=== PATIENT | female | born 2000 | race African-American/Black ===

== ENCOUNTER → 2019-05-22 | Outpatient (REF) | payer OTHER ==
[~2019-05-22] MED LIST: BIOT1CAP2 PO
[2019-05-22 21:49] LABS: CHLAMYDIA DNA AMPLIFICATION NEGATIVE (NEGATIVE); GC DNA AMPLIFICATION NEGATIVE (NEGATIVE)
[2019-05-24 10:10] LABS: HEPATITIS A ANTIBODY IGM NEGATIVE (NEGATIVE); HEPATITIS B CORE ANTIBODY IGM NEGATIVE (NEGATIVE); HEPATITIS B SURFACE ANTIGEN NEGATIVE (NEGATIVE); HEPATITIS C VIRUS ABY INDEX 0.2 INDEX (<0.8); HIV 1&2 SCREEN CENTAUR NEGATIVE (NEGATIVE)
[2019-05-28 00:07] LABS: HSV TYPE I IgM AB <1:10 titer (<1:10); HSV TYPE II IgM ABY <1:10 titer (<1:10)
== END ==
LOC: M SFHCLERA 16:46
PROVIDERS: ATTEND Physician Assistant
DX: N94.9 Unspecified condition associated with female genital organs and menstrual cycle (principal)
CPT/HCPCS: 81002; 81025; 86695; 86696; 86705; 86709; 86780; 86803; 87070; 87086; 87252; 87340; 87389; 87661; G0463

== ENCOUNTER 2019-08-15 00:12 | Emergency (ER) | payer OTHER ==
[~2019-08-15] VITALS: Ht 165.1 cm; Wt 59.0 kg
[2019-08-15] MEDS ORDERED: BIOT1CAP2 PO (00:36)
[2019-08-15] MEDS ORDERED: NS 1,000 ML IV ONE (00:45)
[2019-08-15 00:48] LABS: BASO # 0.1 10^3/uL (0.0-0.2); BASO % 0.3 % (0.0-1.0); EOS % 0.1 % (0.0-3.0); HEMATOCRIT 39.1 % (36.0-47.0); HEMOGLOBIN 12.4 g/dl (12.0-15.5); LYMPH # 0.7 10^3/uL (1.5-5.0); LYMPH % 4.5 % (24.0-44.0); MEAN CORPUSCULAR HEMOGLOBIN 28.1 pg (27.0-33.0); MEAN CORPUSCULAR HGB CONC 31.7 g/dl (32.0-36.5); MEAN CORPUSCULAR VOLUME 88.5 fl (80.0-96.0); MONO # 0.5 10^3/uL (0.0-0.8); MONO % 2.9 % (0.0-5.0); NEUTROPHILS % 91.5 % (36.0-66.0); PLATELET COUNT, AUTOMATED 166 10^3/uL (150-450); RED BLOOD COUNT 4.42 10^6/uL (4.00-5.40); WHITE BLOOD COUNT 15.3 10^3/uL (4.0-10.0)
[2019-08-15 01:33] LABS: BLOOD UREA NITROGEN 19 MG/DL (7-18); CALCIUM LEVEL 8.9 MG/DL (8.5-10.1); CARBON DIOXIDE LEVEL 22 MEQ/L (21-32); CHLORIDE LEVEL 105 MEQ/L (98-107); CPK CREATINE PHOSPHOKINASE 987 U/L (26-192); CREATININE FOR GFR 0.69 MG/DL (0.55-1.30); ETHYL ALCOHOL (ETHANOL) < 0.003 % (0.000-0.010); GLOMERULAR FILTRATION RATE > 60.0 (>60); GLUCOSE, FASTING 101 MG/DL (70-100); POTASSIUM SERUM 4.1 MEQ/L (3.5-5.1); SODIUM LEVEL 139 MEQ/L (136-145)
--- NOTE | 2019-08-15 02:29 | REPVR ---
PROCEDURE INFORMATION: Exam: CT Head Without Contrast Exam date and time: 08/15/2019 1:24 AM Age: 19 years old Clinical history: Altered mental status/memory loss; Other: Hypothermic; Additional info: AMS TECHNIQUE: Imaging protocol: Computed tomography of the head without contrast. Radiation optimization: All CT scans at this facility use at least one of these dose optimization techniques: automated exposure control; mA and/or kV adjustment per patient size (includes targeted exams where dose is matched to clinical indication); or iterative reconstruction. COMPARISON: No relevant prior studies available. FINDINGS: Brain: The white-prescott differentiation is preserved demonstrating no acute territorial type infarct. No acute intracranial hemorrhage is visualized. No intracranial mass effect. Midline shift: There is no midline shift. Ventricles: No ventriculomegaly. Bones/joints: The calvarium demonstrates no evidence for a depressed fracture. Sinuses: Visualized sinuses are unremarkable. No fluid levels. Mastoid air cells: No mastoid effusion. Soft tissues: Multiple tiny hyperdense scalp foci are visualized, suggestive of calcification. IMPRESSION: 1. No acute intracranial abnormality. 2. If further evaluation is clinically indicated, an MRI of the brain is recommended. Electronically signed by: Derick Valenzuela On 08/15/2019 02:29:22 AM
[2019-08-15 03:15] VITALS: BP 109/52
== END 2019-08-15 03:48 | disposition home or self-care (01) ==
LOC: M ED 00:12
DX: T68.XXXA Hypothermia, initial encounter (principal); Y92.84 Military training ground as the place of occurrence of the external cause; Y99.1 Military activity; X31.XXXA Exposure to excessive natural cold, initial encounter
CPT/HCPCS: 36415; 70450; 80048; 82375; 82550; 85025; 96360; 96361; 99284; G0480

== ENCOUNTER 2021-02-20 06:53 | Inpatient (IN) | payer OTHER ==
[2021-02-20] VITALS (39 sets, daily range): BP systolic 110–148; BP diastolic 67–98
[~2021-02-20] VITALS: Ht 165.1 cm; Wt 75.3 kg
[2021-02-20] MEDS ORDERED: LACTATED RINGER'S 1000 ML IV STA (07:12)
[2021-02-20] MEDS ORDERED: LR 1,000 ML IV SCH (07:15)
--- NOTE | 2021-02-20 07:49 | HPEPDOC ---
Obstetrical History & Physical General Date of Admission Vital Signs Label Value Date Time Patient Temperature 98.0 degrees F 02/20/21 0735 Temperature Source Temporal 02/20/21 0735 Pulse 84 02/20/21 0716 Blood Pressure Assessment 137/89 (105) 02/20/21 0716 Source Automatic Cuff (NIBP) Primary Care Physician: Kevin Hancock MD History of Present Illness AT 39.1 WEEKS HISTORY CONTRACTIONS Q5 MINUTES MODERATE PAINFUL NO LOSS OF FLUID NO BLEEDING Chief Complaint: Contractions, term Information Provided By: Patient Age: 20 : 1 Term: 1 Pre-term: 0 Abortions: 0 Livin Care Care: Good Care Number of Visits: 8 Dating Final EDC: Feb 26, 2021 Final EDC by: LMP LMP: May 22, 2020 1st Trimester Date: Aug 03, 2020 Weeks + Days: 10.6 Estimated Date of Confinement: Feb 26, 2021 EGA at Admission: 39.1 Antepartum Course Diagnos(e)s TERM IN ACTIVE LABOR Height (inches): 55 Pre- weight (lbs.): 129 Admission Weight (lbs.): 166 Change in Weight (lbs.): 37 Past Medical History Past Obstetrical History : Past Obstetrical History: Primgravida OPTICIAN History: No pertinent history Past Medical History Surgical History: Denies/None Family History Significant Family History: No pertinent family hx Social History Marital Status: Family situation: Spouse/partner home * Smoker: non-smoker Alcohol: Denies Drugs: denies Abuse Violence Screening Have you been hit/kicked/slapp: No Have you been sexually assault: No Imunizations Tdap status: current Influenza Status: current Allergies Coded Allergies: nickel (Verified Adverse Reaction, Intermediate, 02/20/21) Medications No Active Prescriptions or Reported Meds Physical Examination Physical Examination GENERAL: Alert and oriented times three. BREAST: . ABDOMEN: Gravid and non-tender to touch. FETUS: Is vertex (VTX) by sterile vaginal examination (SVE), fetus is vertex (VTX) by Onel. HEART RATE: Regular rate and rhythm. LUNGS: Clear to auscultation (CTA). EXTREMITIES: No edema. No clonus. Deep tendon reflexes (DTRs) + . Laboratory Data Urine Culture: No Growth Pertinent Laboratoy Data Blood Type: O+ RBC Antibody Screen: Negative HIV: Negative Hepatitis B: Negative Hepatitis C: Negative Rapid Plasma Reagin: Nonreactive Rubella: Immune Varicella: Immune Chlamydia/Gonorrhea: Negative Group B Streptococcus: Negative Cystic Fibrosis: Negative Anatomy Ultrasound Ultrasound Date: Dec 10, 2020 Placenta Location: Anterior Normal Anatomy: Yes Placenta Previa: No Estimated Weight (grams): 1369 Steroid Therapy Steroid Therapy: No Vaginal Examination Dilation: 4 cm Effacement: 70% Station: -2 Cervical Consistency: Soft Cervical Position: Posterior Presentation: Cephalic presentation Position: Vertex (occiput) Assessment Variability: Moderate Accelerations: Present Decelerations: None Tocometer Contractions: Yes Frequency: regular Duration: less than 60 seconds Strength: palpated as strong Assessment/Plan Assessment 20 -year-old (G)1 para (P)0 at 39.1 weeks by [10.6-week ultrasound. Presents to Labor and Delivery (L&D) CONTRACTIONS MODERATE Q 5 MINUTES Plan Admit and orient. Inspector And Tester and consent. Diet: MARK Group B Streptococcus (GBS) [negative]. Labs and intravenous (IV) per unit protocol. Counseled on Pitocin and induction of labor (IOL). Lactated Ringers (LR): Bolus 1000 PRE EPIDURAL mL, then at 125 mL/hr. Anticipate [normal spontaneous delivery ()]. C-S as appropriate. Labor and Delivery Counseling REVIEWED RISK VAGINAL DELIVERY RE HEMORRHAGE INFECTION PERFORATION RISK VAGINAL DELIVERY LACERATIONS BOWEL BLADDER CERVIX REPAIR NEEDED NEED FOR EPISIOTOMY AND REPAIR. REVIEWED OPERATIVE VAGINAL DELIVERY DONE FOR OR MATERNAL CONDITIONS RISK OF CEPHALOHEMATOMA, SUBDURAL HEMATOMA LACERATIONS NEED FOR ADMISSION NICU AND OR TRANSFER TO HIGHER LEVEL OF CARE. NEED FOR EMERGENCY CS FOR MEDICAL OR CONDITIONS REMOTE BLOOD TRANSFUSIONS FOR LIFE THREATENING BLEEDING REMOTE POSSIBILITIES OF HYSTERECTOMY FOR LIFE THREATENING BLEEDING EXPRESSED UNDERSTANDING SAFE TO PROCEED 20 MINUTES FACE TO FACE Kevin Hancock MD February 20, 2021 07:45
[2021-02-20 08:22] LABS: HEMATOCRIT 37.1 % (36.0-47.0); HEMOGLOBIN 11.6 g/dl (12.0-15.5); MEAN CORPUSCULAR HGB CONC 31.3 g/dl (32.0-36.5); PLATELET COUNT, AUTOMATED 176 10^3/uL (150-450); RED BLOOD COUNT 4.47 10^6/uL (4.00-5.40); WHITE BLOOD COUNT 8.2 10^3/uL (4.0-10.0)
[2021-02-20] MEDS ORDERED: FENTANYL 2MCG/ML ROPIVACAINE 0.2% IN 0.9% NACL 100ML IVBAG As Ordered ONE (08:30)
[2021-02-20] MEDS ORDERED: OXYTOCIN 30 UNITS IN 0.9% NaCl 500ML IV BAG (J2590) As Ordered ONE (08:30)
--- NOTE | 2021-02-20 08:57 | IPNPDOC ---
Text Note Date of Service The patient was seen on 02/20/21. NOTE Assuming care of this 21yo G1 at 39w1d ega, by LMP c/w 1st trimester ultrasound, with an uncomplicated PNC admitted in early active labor. The patient denies a history of asthma, cHTN or abdominal surgeries. She is Rh positive, GBS negative, Rubella Immune, HepB/HIV/RPR negative. Admission HCT was 37.1. Placenta is anterior. VTX presentation was confirmed by examination. EFW 3400grams. Last SVE: /-2 (07:30 on 20 feb 2021) FHT: 130bpm, moderate variability, + accelerations, - decelerations TOCO: q5-minutes Plan: - Epidural anesthesia following IVF bolus - q2-hour strip reviews - Will repeat SVE 4-hours after last evaluation, or as clinically indicated Ifeanyi Briseno., Ph.D. [facility] OB-GENERAL LABOR FORKLIFT OPERATOR Staff Physician Prashanth CASE I+Stormy VSPrashanth I+O Laboratory Tests 02/20/21 08:00 Vital Signs Date Time Temp Pulse Resp B/P (MAP) Pulse Ox O2 Delivery O2 Flow Rate FiO2 02/20/21 07:35 98.0 02/20/21 07:16 84 137/89 (105) CRISTAL BENSON M.D. February 20, 2021 08:57
[2021-02-20] MEDS ORDERED: EPIDURAL COMMENT XX SCH (10:05)
[2021-02-20] MEDS ORDERED: NALOXONE INJ 0.4MG/1ML VIAL (J2310 PER 1MG) IV PRN (10:05)
[2021-02-20] MEDS ORDERED: FENTANYL/ROPIVACAINE/NACL BAG 100 ML EPIDURAL SCH (10:05)
[2021-02-20] MEDS ORDERED: EPIDURAL/PCA KEYS XX PRN (10:05)
[2021-02-20] MEDS ORDERED: diphenhydrAMINE 50MG/ML VIAL (J1200) IV PRN (10:05)
[2021-02-20] MEDS ORDERED: LACTATED RINGER'S 1000 ML IV PRN (10:05)
[2021-02-20] MEDS ORDERED: REFRIGERATOR IV KEYS XX PRN (10:05)
[2021-02-20] MEDS ORDERED: ePHEDrine SULFATE 25 MG/5 ML(5MG/ML) SYRINGE IV PRN (10:05)
[2021-02-20] MEDS ORDERED: ONDANSETRON 4MG/2ML VIAL IV PRN (10:05)
--- NOTE | 2021-02-20 12:00 | IPNPDOC ---
Obstetrical Progress Note Date of Service February 20, 2021 Subjective SPC Zo Adame is a 21yo G1 at 39w1d ega, by LMP c/w 1st trimester ultrasound, who presented this morning in early active labor at 4/70/-2. Patient is now comfortable with an epidural anesthesia. Pt was last checked at 09:40 by her RN and was found to be unchanged at 4/70/-2. Objective Vital Signs Date Time Temp Pulse Resp B/P (MAP) Pulse Ox O2 Delivery O2 Flow Rate FiO2 02/20/21 07:35 98.0 02/20/21 07:16 84 137/89 (105) Assessment Heart Rate (FHR): 120 Variability: Moderate Accelerations: Positive Decelerations: None Heart Rate Tracing: Category I Tocometer Contractions: Yes Frequency: regular, every 1-3 min. Sterile Vaginal Examination Dilation: 4 cm Effacement (%): 70% Station: -2 Cervical Consistency: Soft Cervical Position: Middle Postion/Presentation: Cephalic presentation Assessment and Plan Age: 21 : 1 EGA at Admission: 39 (39+1) Weeks & Days 39w1d Status: Reassuring Group B Streptococcus: Negative Anticipate: Vaginal Delivery Additional Comments - Will repeat SVE in 4 hours. - If unchanged, will consider amniotomy versus starting Pitocin. CRISTAL BENSON M.D. February 20, 2021 12:00
--- NOTE | 2021-02-20 13:43 | IPNPDOC ---
Obstetrical Progress Note Date of Service February 20, 2021 Subjective 21yo G1 at 39w1d ega, by LMP & c/w 1st trimester ultrasound, who was admitted in early active labor. Pt is comfortable with epidural anesthesia. Objective Vital Signs Date Time Temp Pulse Resp B/P (MAP) Pulse Ox O2 Delivery O2 Flow Rate FiO2 02/20/21 07:35 98.0 02/20/21 07:16 84 137/89 (105) Assessment Heart Rate (FHR): 120 Variability: Moderate Accelerations: Positive Decelerations: None Heart Rate Tracing: Category I Tocometer Contractions: Yes Frequency: regular, every 1-3 min. Sterile Vaginal Examination Dilation: 6 cm Effacement (%): 90% Station: 0 Cervical Consistency: Soft Cervical Position: Middle Postion/Presentation: Cephalic presentation Assessment and Plan Age: 21 : 1 EGA at Admission: 39 Weeks & Days 39w1d ega Status: Reassuring Group B Streptococcus: Negative Anticipate: Vaginal Delivery Additional Comments Amniotomy performed productive of moderate meconium stained fluid. Will repeat SVE & strip review in 2 hours, or as clinically indicated. Ifeanyi Briseno., ph.D. [facility] OB-SPINNING BATH PERSON Staff Physician CRISTAL BENSON M.D. February 20, 2021 13:43
--- NOTE | 2021-02-20 15:46 | IPNPDOC ---
Obstetrical Progress Note Date of Service February 20, 2021 Subjective 21yo G1 at 39w1d ega, by LMP c/w 1st trimester ultrasound, who was admitted in early active labor this morning. Patient is currently comfortable with epidural anesthesia. Objective Vital Signs Date Time Temp Pulse Resp B/P (MAP) Pulse Ox O2 Delivery O2 Flow Rate FiO2 02/20/21 07:35 98.0 02/20/21 07:16 84 137/89 (105) Assessment Heart Rate (FHR): 120 Variability: Moderate Accelerations: Positive Decelerations: Intermittent Heart Rate Tracing: Category II Tocometer Contractions: Yes Frequency: regular, every 1-3 min. Sterile Vaginal Examination Dilation: complete (Anterior Lip) Effacement (%): 100% Station: +1 Cervical Consistency: Soft Cervical Position: Anterior Postion/Presentation: Cephalic presentation Assessment and Plan Age: 21 : 1 EGA at Admission: 39 Weeks & Days 39w1d ega Status: Reassuring Group B Streptococcus: Negative Anticipate: Vaginal Delivery Additional Comments 21yo G1 at 39w1d ega who is currently Anterior Lip / 100% / +1. - Will allow the patient to labor down prior to initiating maternal pushing efforts. Ifeanyi Briseno., Ph.D. [facility] OB-INFORMATION SECURITY Staff CRISTAL BENSON M.D. February 20, 2021 15:46
[2021-02-20 17:26] LABS: CORD GAS ABE A -11.7; CORD GAS HCO3 A 15.9 MEQ/L; CORD GAS O2 SAT A 98.1 %; CORD GAS PCO2 A 42.2 mmHg; CORD GAS PH A 7.194 UNITS; CORD GAS PO2 A 83.4 mmHg; CORD GAS SBC A 15.3 MEQ/L; CORD GAS TCO2 A 17.2 MEQ/L
[2021-02-20 17:27] LABS: CORD GAS ABE V -8.6; CORD GAS HCO3 V 18.9 MEQ/L; CORD GAS PCO2 V 45.9 mmHg; CORD GAS PH V 7.232 UNITS; CORD GAS TCO2 V 20.3 MEQ/L
[2021-02-20] MEDS ORDERED: ACETAMINOPHEN TAB 650MG DOSE (2X325MG) PO PRN (17:30)
[2021-02-20] MEDS ORDERED: OXYTOCIN DRIP 30 UNITS in IV 1 EA IV SCH (17:30)
[2021-02-20] MEDS ORDERED: ACETAMINOPHEN 500 MG TAB PO PRN (17:30)
[2021-02-20] MEDS ORDERED: DOCUSATE SODIUM 100MG CAPSULE PO PRN (17:30)
[2021-02-20] MEDS ORDERED: IBUPROFEN 800 MG TAB PO PRN (17:30)
[2021-02-20] MEDS ORDERED: DIBUCAINE 1% OINTMENT 30GM TOP PRN (17:30)
[2021-02-20] MEDS ORDERED: IBUPROFEN 600MG TAB PO PRN (17:30)
--- NOTE | 2021-02-20 17:52 | DNPDOC ---
[facility] Delivery Note Delivery Note DATE OF DELIVERY: 02/20/2021 PREDELIVERY DIAGNOSIS: 39-1/7 weeks' gestation and labor. POST DELIVERY DIAGNOSIS: Delivered. PROCEDURE: Spontaneous vaginal delivery. SCREEN OPERATOR: Dr. Ankit Benson ANESTHESIA: Epidural. ESTIMATED BLOOD LOSS: 350mL. FINDINGS: 3330-gram male infant, Score 6/8, no nuchal cord. DELIVERY SUMMARY: Patient is a 21-year-old 1 now para 1-0-0-1 who was admitted to labor and delivery in early active labor as 07:30 hours on 20 Feb 2021. of a live male, 3330-grams and APGARS 6/8. Delivered ERIK with hand, no nuchal cord, & moderate meconium. Nose and mouth were suctioned at the perineum; body delivered without difficulty. Cord clamped and cut. Baby handed to nurse and was immediately taken to the warmer for deep suctioning. Placenta delivered spontaneously and intact. Blood gasses sent. Fundus firm with minimal bleeding. Placenta appears intact with 3 vessel cord. Perineum and vagina inspected - small, 1st degree left labial laceration repaired with 2-O vicryl in a running fashion. EBL 350mL. Hemostasis. Patient tolerated procedure well, recovering in LDR. ANKIT BENSON M.D. February 20, 2021 17:52
[2021-02-21 05:14] VITALS: BP 124/86
--- NOTE | 2021-02-21 06:56 | IPNPDOC ---
Progress Note Date of Service: February 21, 2021 Day#: 1 Progress Note SUBJECT: SPC Zo Adame is a 21-year-old 1 now Para 1-0-0-1 status post uncomplicated spontaneous vaginal delivery at 39-1/7 weeks' at approximately 17:30 hours on 20 Feb 2021 of a male weighing 3330-grams with post vaginal laceration and repair, doing well day # 1. She has been ambulating, voiding spontaneously without issue and tolerating regular diet. Breast feeding without issue. Reports lochia is like a normal period. Patient is ambulating well. Reports some cramping with . Denies any pain. Voiding and passing gase without difficulty. OBJECTIVE: VITAL SIGNS: Within normal limits, afebrile. Alert and oriented times three. Breath sounds clear to auscultation. Heart rate: Regular rate and rhythm, no murmurs, rubs or gallops. Abdomen: Fundus firm at U-2. Soft, NTTP. Moderate lochia. ASSESSMENT: SPC Adame is a 21-year-old 1 now Para 1-0-0-1 status post uncomplicated spontaneous vaginal delivery after presenting in early active labor, delivered at ~17:30 hours and 39-1/7 weeks', doing well on day 1. Vitals within normal limits, afebrile, hemodynamically stable with no evidence of infection. PLAN: 1. Tylenol and Motrin for pain. 2. Encourage breast feeding and ambulation. 3. Patient would like a combined oral contraceptive pill for contraception. Will start at 6-week PP visit. 4. Likely discharge to home on PP Day # 2. 5. Routine PP visit in 6 weeks in clinic. 6. Discussed return precautions at length. Ifeanyi Briseno., Ph.D. [facility] and OB-MARKETING OPERATIONS ANALYST Staff Physician VS, I&O, 24H, Prashanth Vital Signs/I&O Vital Signs Date Time Temp Pulse Resp B/P (MAP) Pulse Ox O2 Delivery O2 Flow Rate FiO2 02/21/21 05:14 98.8 68 15 124/86 (99) 100 Room Air I&O- Last 24 Hours up to 6 AM 02/21/21 06:00 Intake Total 1500 ml Output Total 950 ml Balance 550 ml Laboratory Data 24H LABS Laboratory Tests 2 02/20/21 08:00: Nucleated Red Blood Cells % (auto) 0.0 02/20/21 08:14: 02/20/21 08:24: Serology Scanned Report Hepatitis B Testing 02/20/21 17:18: Cord Arterial Blood pH 7.194, Cord Arterial Blood PCO2 42.2, Cord Arterial Blood PO2 83.4, Cord Arterial Blood HCO3 15.9, Cord Arterial Blood Total CO2 17.2, Cord Arterial Blood Base Excess -11.7, Cord Arterial Base Excess (Standard 15.3, Cord Arterial Bld Oxygen Saturation 98.1 02/20/21 17:19: Cord Venous Blood pH 7.232, Cord Venous Blood PCO2 45.9, Cord Venous Blood PO2 30.0, Cord Venous Blood HCO3 18.9, Cord Venous Blood Total CO2 20.3, Cord Venous Base Excess (Actual) -8.6, Cord Venous Base Excess (Standard) 17.0, Cord Venous Blood Oxygen Saturation 65.0 CBC/BMP Laboratory Tests 02/20/21 08:00 CRISTAL BENSON M.D. February 21, 2021 06:56
[2021-02-21] MEDS: PRENATAL VITAMINS CHEWABLE TABLET PO SCH (09:05)
[2021-02-21 18:01] VITALS: BP 142/91
[2021-02-22 06:07] VITALS: BP 136/85
[2021-02-22] MEDS ORDERED: IBUP-1022 PO (06:33)
--- NOTE | 2021-02-22 06:40 | OBDS ---
[facility] Obstetrical Discharge Sum. Obstetrical Discharge Summary Date: February 22, 2021 Time: 06:40 : 1 Term: 1 Pre-term: 0 Abortions: 0 Livin VDRL: Non-Reactive Rh: Positive Rubella: Immune Sex: Male Weight: grams (3330) Anesthesia: Regional Anesthesia A/P, Post Course List any complications Admission diagnosis: Early Active Labor. Discharge diagnosis: Delivered via . Condition at Discharge: Stable Discharge Instructions: Home. Activity: As Tolerated. Diet: Regular. Medications: Vitamins by mouth daily; Tylenol 650mg by mouth every 6- hours, as needed for pain; Motrin 600mg by mouth every 8-hours, as needed for pain. Follow-up: 6-week visit at [place] OB-MOTOR CARRIER INSPECTOR. SUBJECT: SPC Zo Adame is a 21-year-old 1 now Para 1-0-0-1 status post uncomplicated spontaneous vaginal delivery at 39-1/7 weeks'. Delivery was productive of a viable male weighing 3330-grams. She is doing well on day # 2. Her pain is well controlled, she is ambulating without difficulty, voiding spontaneously, tolerating a regular diet, and passing flatus. She plans to breast & bottle feed. This morning, her lochia is minimal. She declined a circumcision for her infant. OBJECTIVE: VITAL SIGNS: Within normal limits, afebrile. Alert and oriented times three. Breath sounds clear to auscultation. Heart rate: Regular rate and rhythm, no murmurs, rubs or gallops. Abdomen: Fundus firm at U-2. Soft, NTTP. Moderate lochia. ASSESSMENT: SPC Adame is a 21-year-old G1 now P 1-0-0-1 status post uncomplicated spontaneous vaginal delivery who is hemodynamically stable and ready for discharge on day 2. PLAN: 1. Tylenol and Motrin for pain. 2. Encourage breast feeding and ambulation. 3. Patient would like a combined oral contraceptive pill for contraception. Will start at 6-week PP visit. 4. Routine PP visit in 6 weeks in clinic. 6. Discussed return precautions at length. Ifeanyi Briseno., Ph.D. [facility] and OB-MOTOR CARRIER INSPECTOR Staff Physician CRISTAL BENSON M.D. February 22, 2021 06:40
[2021-02-22] MEDS: PRENATAL VITAMINS CHEWABLE TABLET PO SCH (08:52)
== END 2021-02-22 11:35 | disposition home or self-care (01) | DRG 807 ==
LOC: M LDO 06:53 → M LDI 07:55 → M OBS 19:57
PROVIDERS: ADMIT Obstetrics & Gynecology; ATTEND Obstetrics & Gynecology
PROC: 10E0XZZ Delivery of Products of Conception, External Approach (ICD-10-PCS; principal; 2021-02-20)
PROC: 10907ZC Drainage of Amniotic Fluid, Therapeutic from Products of Conception, Via Natural or Artificial Opening (ICD-10-PCS; 2021-02-20)
PROC: 0HQ9XZZ Repair Perineum Skin, External Approach (ICD-10-PCS; 2021-02-20)
DX: O70.0 First degree perineal laceration during delivery (principal); Z37.0 Single live birth; Z3A.39 39 weeks gestation of pregnancy; O77.0 Labor and delivery complicated by meconium in amniotic fluid

== ENCOUNTER → 2022-04-28 | Outpatient (CLI) | payer OTHER ==
[~2022-04-28] MED LIST changes: +IBUP-1022 PO
== END ==
LOC: M WHC 08:14
PROVIDERS: ATTEND Physician Assistant Medical
DX: Z32.01 Encounter for pregnancy test, result positive (principal); Z3A.36 36 weeks gestation of pregnancy

== ENCOUNTER 2022-07-18 20:40 | Inpatient (IN) | payer OTHER ==
[~2022-07-18] VITALS: Ht 165.1 cm; Wt 68.0 kg
[2022-07-18] VITALS (15 sets, daily range): BP systolic 119–138; BP diastolic 67–94
[2022-07-18] MEDS ORDERED: LACTATED RINGER'S 1000 ML IV STA (20:58)
[2022-07-18] MEDS ORDERED: TRANEXAMIC ACID INJection 1,000 MG in NS 100 ML IV PRN (21:00)
[2022-07-18] MEDS ORDERED: OXYTOCIN INJ 10 UNITS/ML VIAL (J2590) IM PRN (21:00)
[2022-07-18] MEDS ORDERED: OXYTOCIN DRIP 30 UNITS in IV 1 EA IV PRN (21:00)
[2022-07-18] MEDS ORDERED: CARBOPROST TROMETHAMINE 250 MCG/ML AMP IM PRN (21:00)
[2022-07-18] MEDS ORDERED: METHYLERGONOVINE MALEATE 0.2 MG/ML VIAL (J2210) IM PRN (21:00)
[2022-07-18] MEDS ORDERED: LR 1,000 ML IV SCH (21:00)
[2022-07-18] MEDS ORDERED: ZOLO25TA PO (21:08)
[2022-07-18] MEDS ORDERED: PRENTAB9 PO (21:08)
[2022-07-18 21:15] LABS: BASO % 0.2 % (0.0-1.0); EOS # 0.1 10^3/uL (0.0-0.5); EOS % 0.7 % (0.0-3.0); HEMATOCRIT 32.2 % (36.0-47.0); HEMOGLOBIN 10.7 g/dl (12.0-15.5); LYMPH % 35.8 % (24.0-44.0); MEAN CORPUSCULAR HEMOGLOBIN 27.2 pg (27.0-33.0); MEAN CORPUSCULAR HGB CONC 33.2 g/dl (32.0-36.5); MEAN CORPUSCULAR VOLUME 81.9 fl (80.0-96.0); NEUTROPHILS # 4.2 10^3/uL (1.5-8.5); NEUTROPHILS % 50.7 % (36.0-66.0); PLATELET COUNT, AUTOMATED 174 10^3/uL (150-450); RED BLOOD COUNT 3.93 10^6/uL (4.00-5.40); WHITE BLOOD COUNT 8.3 10^3/uL (4.0-10.0)
[2022-07-18] MEDS ORDERED: diphenhydrAMINE 50MG/ML VIAL (J1200) IV PRN (21:20)
[2022-07-18] MEDS ORDERED: EPIDURAL/PCA KEYS XX PRN (21:20)
[2022-07-18] MEDS ORDERED: ePHEDrine SULFATE 25 MG/5 ML(5MG/ML) SYRINGE IVP PRN (21:20)
[2022-07-18] MEDS ORDERED: FENTANYL/ROPIVACAINE/NACL BAG 100 ML EPIDURAL SCH (21:20)
[2022-07-18] MEDS ORDERED: NALOXONE INJ 0.4MG/1ML VIAL (J2310 PER 1MG) IV PRN (21:20)
[2022-07-18] MEDS ORDERED: ONDANSETRON 4MG 2ML VIAL IV PRN (21:20)
[2022-07-18] MEDS ORDERED: LR 500 ML IV PRN (21:20)
[2022-07-18] MEDS ORDERED: FENTANYL 2MCG/ML ROPIVACAINE 0.2% IN 0.9% NACL 100ML IVBAG As Ordered ONE (21:21)
[2022-07-18 22:54] LABS: HIV 1&2 SCREEN CENTAUR NEGATIVE (NEGATIVE)
[2022-07-18] MEDS ORDERED: IBUPROFEN 800 MG TAB PO PRN (23:50)
[2022-07-18] MEDS ORDERED: ACETAMINOPHEN TAB 650MG DOSE (2X325MG) PO PRN (23:50)
[2022-07-18] MEDS ORDERED: METHYLERGONOVINE MALEATE 0.2 MG TAB PO PRN (23:50)
[2022-07-18] MEDS ORDERED: ACETAMINOPHEN 500 MG TAB PO PRN (23:50)
[2022-07-18] MEDS ORDERED: DIBUCAINE 1% OINTMENT 30GM TOP PRN (23:50)
[2022-07-18] MEDS ORDERED: RHOGAM 300 MCG (1500 IU) INJ (J2790) IM SCH (23:50)
[2022-07-18] MEDS ORDERED: DOCUSATE SODIUM 100MG CAPSULE PO PRN (23:50)
[2022-07-18] MEDS ORDERED: IBUPROFEN 600MG TAB PO PRN (23:50)
[2022-07-19 01:01] VITALS: BP 121/68
[2022-07-19 06:00] VITALS: BP 130/83
[2022-07-19 08:00] LABS: GC DNA AMPLIFICATION NEGATIVE (NEGATIVE)
[2022-07-19] MEDS ORDERED: INFLUENZA QUADRIVALENT PF VACCINE 0.5ML SYRINGE IM.IMMUN ONE (09:00)
[2022-07-19] MEDS: PRENATAL VITAMINS CHEWABLE TABLET PO SCH (09:25)
[2022-07-19 17:56] VITALS: BP 107/67
[2022-07-19 18:45] LABS: AMPHETAMINES URINE REFLEX NEGATIVE (NEGATIVE); BARBITURATES URINE REFLEX NEGATIVE (NEGATIVE); BENZODIAZEPINES URINE REFLEX NEGATIVE (NEGATIVE); CANNABINOIDS URINE REFLEX NEGATIVE (NEGATIVE); COCAINE METABOLITE URINE REFLE NEGATIVE (NEGATIVE); METHADONE URINE REFLEX NEGATIVE (NEGATIVE); OPIATES URINE REFLEX NEGATIVE (NEGATIVE); PHENCYCLIDINE URINE REFLEX NEGATIVE (NEGATIVE)
[2022-07-20 05:51] VITALS: BP 125/62
[2022-07-20] MEDS: PRENATAL VITAMINS CHEWABLE TABLET PO SCH (08:59)
[2022-07-20] MEDS ORDERED: MEASLES,MUMPS,RUBELLA VACCINE INJ (MMR-II) (90707) SC.IMMUN ONE (09:00)
[2022-07-20] MEDS ORDERED: INFLUENZA QUADRIVALENT PF VACCINE 0.5ML SYRINGE IM.IMMUN ONE (09:00)
[2022-07-20] MEDS ORDERED: LIDOCAINE W/EPINEPHRINE 1% 20ML VIAL SC ONE (11:40)
== END 2022-07-20 14:42 | disposition home or self-care (01) | DRG 807 ==
LOC: M LDO 20:40 → M LDI 20:51 → M OBS 07-19 00:59
PROVIDERS: ADMIT Obstetrics & Gynecology; ATTEND Obstetrics & Gynecology
PROC: 10E0XZZ Delivery of Products of Conception, External Approach (ICD-10-PCS; principal; 2022-07-18)
PROC: 10907ZC Drainage of Amniotic Fluid, Therapeutic from Products of Conception, Via Natural or Artificial Opening (ICD-10-PCS; 2022-07-18)
PROC: 0JHF3HZ Insertion of Contraceptive Device into Left Upper Arm Subcutaneous Tissue and Fascia, Percutaneous Approach (ICD-10-PCS; 2022-07-20)
DX: O64.5XX0 Obstructed labor due to compound presentation, not applicable or unspecified (principal); Z37.0 Single live birth; Z3A.38 38 weeks gestation of pregnancy; O77.0 Labor and delivery complicated by meconium in amniotic fluid; Z30.017 Encounter for initial prescription of implantable subdermal contraceptive

== ENCOUNTER → 2023-03-30 | Outpatient (CLI) | payer OTHER ==
[~2023-03-30] MED LIST changes: +PRENTAB9 PO; +ZOLO25TA PO
== END ==
LOC: M RAD 08:23
PROVIDERS: ATTEND Physician Assistant
DX: J01.90 Acute sinusitis, unspecified (principal)